=== PATIENT | female | born 1995 | race Hispanic/Latino ===

== ENCOUNTER 2021-05-15 18:53 | Emergency (ER) | payer MEDICAID ==
[~2021-05-15] VITALS: Ht 152.4 cm; Wt 140.6 kg
[2021-05-15] MEDS ORDERED: ACETAMINOPHEN WITH CODEINE 1 TAB TAB PO STA (20:32)
[2021-05-15 20:37] VITALS: BP 138/108
[2021-05-15 20:54] LABS: BASOPHILS % (AUTO) 1.3 % (0.0-5.0); EOSINOPHILS % (AUTO) 0.9 % (0.0-8.0); HEMATOCRIT 42.6 % (36-48); LYMPHOCYTES % (AUTO) 44.3 % (21.0-51.0); MEAN CORPUSCULAR HEMOGLOBIN 27.6 pg (27.0-33.0); MEAN CORPUSCULAR HGB CONC 32.6 g/dL (32.0-36.0); MEAN CORPUSCULAR VOLUME 84.5 fL (79-99); MONOCYTES % (AUTO) 7.4 % (3.0-13.0); NEUTROPHILS % (AUTO) 45.7 % (40.0-77.0); PLATELET COUNT (AUTO) 278 K/uL (130-400); RED BLOOD CELL COUNT(AUTO) 5.04 MIL/uL (4.00-5.50); RED CELL DISTRIBUTION WIDTH 14.7 % (11.0-15.5); WHITE BLOOD COUNT (AUTO) 5.6 K/uL (4.8-10.8)
[2021-05-15] MEDS ORDERED: AMOX/CLAV 875/125MG TAB PO ONE (21:00)
[2021-05-15] MEDS ORDERED: ALBUTEROL INHALER 90MCG/INH IH ONE (21:00)
[2021-05-15] MEDS ORDERED: AZITHROMYCIN 250 MG TABLET PO ONE (21:00)
[2021-05-15 21:07] LABS: POTASSIUM 3.3 mmol/L (3.5-5.1)
[2021-05-15 21:11] LABS: ALBUMIN 3.6 g/dL (3.5-5.0); BILIRUBIN,TOTAL 0.2 mg/dL (0.2-1.0); CRP QUANTITATIVE 8.3 mg/L (0.00-9.0); TOTAL PROTEIN, SERUM 7.6 g/dL (6.0-8.3)
[2021-05-15 21:22] LABS: B-TYPE NATRIURETIC PEPTIDE < 5 pg/mL (0-100)
[2021-05-15 21:36] VITALS: BP 135/83
[2021-05-15 21:41] LABS: APPEARANCE,URINE Clear (CLEAR); BILIRUBIN,URINE Negative (NEGATIVE); COLOR,URINE Yellow (YELLOW); GLUCOSE, URINE (UA) Negative (NEGATIVE); KETONES,URINE Trace mg/dL (NEGATIVE); LEUKOCYTE ESTERASE ,URINE Negative (NEGATIVE); NITRATE,URINE Negative (NEGATIVE); OCCULT BLOOD,URINE Negative (NEGATIVE); PH,URINE 5.5 (5.0-8.0); PROTEIN,URINE Trace mg/dL (NEGATIVE)
[2021-05-15] MEDS ORDERED: ACETAMINOPHEN WITH CODEINE 1 TAB TAB ONE (21:45)
[2021-05-15 21:46] LABS: HCG,QUAL RESULT NEGATIVE (NEGATIVE)
[2021-05-15 21:54] LABS: BACTERIA,URINE Few /HPF (None Seen); MUCUS,URINE Few LPF (None Seen); RBC,URINE 0-1 /HPF (0-1); SQUAMOUS EPITHELIAL CELL,UR Few /HPF (0-2); WBC,URINE 0-1 /HPF (0-1)
[2021-05-15] MEDS ORDERED: CODE10LI PO (22:14)
[2021-05-15] MEDS ORDERED: ALBUHFA IH (22:14)
[2021-05-15] MEDS ORDERED: AMOX-429 PO (22:14)
== END 2021-05-15 22:28 | disposition home or self-care (01) ==
LOC: EDH 18:53
DX: U07.1 COVID-19 (principal); J12.82 Pneumonia due to coronavirus disease 2019
CPT/HCPCS: 36415; 71045; 80053; 81001; 81025; 83880; 85025; 86140; 87635; 87804 ×2; 87880; 99284; C9803